=== PATIENT | female | born 1960 | race Caucasian/White ===

== ENCOUNTER 2019-09-22 09:20 | Outpatient (CLI) | payer OTHER, SELFPAY ==
--- NOTE | ~2019-09-22 | MM_ITS ---
EXAMINATION: MM screening [facility] BI w zakiya HISTORY: Screening mammogram TECHNIQUE: Craniocaudal and mediolateral oblique 3-D tomosynthesis images were obtained and synthetic 2-D images were generated. CAD analysis was submitted and interpreted. COMPARISON: 08/13/2018 BREAST PARENCHYMAL COMPOSITION: There are scattered areas of fibroglandular density. FINDINGS: RIGHT BREAST: An asymmetry is present in the posterior third of the slightly outer breast best apprec iated 7 cm from the nipple on the craniocaudal view. LEFT BREAST: There is a possible mass in the posterior third of the outer breast 10 cm from the nippl e. IMPRESSION: 1. Bilateral breast findings as described above. 2. Additional mammographic views and possible breast ultrasound are recommended. BI-RADS Category 0: Incomplete: Needs additional imaging evaluation. Reviewed, dictated and finalized at location A. UTER OPERATIONS ANALYST IMPRESSION: 1. Bilateral breast findings as described above. 2. Additional mammographic views and possible breast ultrasound are recommended . BI-RADS Category 0: Incomplete: Needs additional imaging evaluation.
== END 2019-09-22 09:21 | disposition home or self-care (01) ==
LOC: ANHIMG 09:26
PROVIDERS: PCP Family Medicine; Visit Provider Obstetrics & Gynecology
DX: Z12.31 Encounter for screening mammogram for malignant neoplasm of breast (principal)
CPT/HCPCS: 77063; 77067

== ENCOUNTER 2019-10-15 11:53 | Outpatient (CLI) | payer OTHER, SELFPAY ==
--- NOTE | ~2019-10-15 | MMUS_ITS ---
EXAMINATION: MM diagnostic mammo BI, US breast BI limited HISTORY: Follow-up breast asymmetries TECHNIQUE: Additional 3-D tomosynthesis images of the breasts were performed and synthetic 2-D images were generated. CAD analysis was submitted and interpreted. High resolution bilateral breast ultraso und was performed. COMPARISON: Comparison to multiple prior studies sequentially, with oldest reviewed study dated 07/19. FINDINGS: MAMMOGRAPHIC FINDINGS: Breast composed of scattered areas of fibroglandular density. There are no suspicious masses, calcifi cations or architectural distortion in either breast to suggest malignancy. ULTRASOUND: Right breast ultrasound: Normal heterogeneous echotexture without focal mass. Left breast ultrasound: At 2:00, 5 cm from the nipple there is a 4 mm simple cyst. No suspicious masses to suggest malignancy . IMPRESSION: 1. No mammographic or sonographic evidence for malignancy. 2. Routine yearly screening mammogram and regular clinical breast examination are recommended. BI-RADS Category 2: Benign finding(s). Reviewed, dictated and finalized at location A. SERVICE TECHNICIAN IMPRESSION: 1. No mammographic or sonographic evidence for malignancy. 2. Routine yearly screening mammogram and regular clinical breast examination a re recommended. BI-RADS Category 2: Benign finding(s).
== END 2019-10-15 11:54 | disposition home or self-care (01) ==
LOC: ANHIMG 11:55
PROVIDERS: PCP Family Medicine; Visit Provider Obstetrics & Gynecology
DX: R92.8 Other abnormal and inconclusive findings on diagnostic imaging of breast (principal)
CPT/HCPCS: 76642; 77066

== ENCOUNTER → 2020-05-05 14:19 | Outpatient (CLI) | payer OTHER, SELFPAY ==
--- NOTE | ~2020-05-05 | XR_ITS ---
EXAMINATION: XR wrist LT min 3V DATE: 05/05/2020 15:19 INDICATION: Left wrist pain. TECHNIQUE: 4 views of left wrist were obtained. COMPARISON: Left wrist radiographs 02/12/2010 FINDINGS: Bone alignment is normal. No fracture. There is heterotopic ossification around ulnar stylo id. There is mild osteoarthritis of first carpometacarpal joint. IMPRESSION: 1. Mild osteoarthritis of first carpometacarpal joint. Reviewed, dictated and finalized at location A.
== END ==
PROVIDERS: PCP Family Medicine; Visit Provider Family Medicine
DX: M19.032 Primary osteoarthritis, left wrist (principal)
CPT/HCPCS: 73110

== ENCOUNTER 2020-11-30 10:18 | Outpatient (CLI) | payer OTHER, SELFPAY ==
--- NOTE | ~2020-11-30 | DEXA_ITS ---
Bone Density Report Name: Isabella Mccartney Age: 60 Sex: Female Ethnicity: White Date of : 1960 Indication: postmenopausal; prior fracture; hysterectomy; Referring Provider: ARIK GILLETTE Study: Bone densitometry was performed. Exam Date: November 30, 2020 Accession number: [id number] Bone Density: Region BMD T-score Z-score Classification AP Spine (L1, L2) 1.046 0.6 2.0 Normal Femoral Neck (Left) 0.804 -0.4 0.9 Normal Total Hip (Left) 0.903 -0.3 0.7 Normal Total Hip Bilateral Avg 0.900 -0.4 0.7 Normal Femoral Neck (Right) 0.805 -0.4 0.9 Normal Total Hip (Right) 0.896 -0.4 0.6 Normal World Health Organization criteria for BMD impression classify patients as: Normal (T-score at or above -1.0), Osteopenia (T-score between -1.0 and -2.5), or Osteoporosis (T-score at or below -2.5). 10-year Fracture Risk: FRAX not reported because: All T-scores for Spine Total, Hip Total, Femoral Neck at or above -1.0 Previous Exams: Region Exam Age BMD T-score BMD Change BMD Change Date g/cm2 vs Baseline vs Previous AP Spine(L1, L2) 11/30/2020 60 1.046 0.6 -0.003(-0.2%) -0.003(-0.2%) 08/13/2018 57 1.048 0.6 Total Hip(Left) 11/30/2020 60 0.903 -0.3 -0.017(-1.8%) -0.017(-1.8%) 08/13/2018 57 0.920 -0.2 Total Hip(Right) 11/30/2020 60 0.896 -0.4 -0.108(-10.8%) -0.108(-10.8%) 08/13/2018 57 1.005 0.5 *Denotes significance at 95% confidence level, LSC for AP Spine = 0.022 g/cm2, LSC for Total Hip = 0.027 g/cm2 Clinical Information Provided by Patient: Has had a low trauma fracture Has used the following medications: Vitamin D, Calcium Has the following medical conditions: Hysterectomy, HYPOTHYROIDISM Patient maximum height was 62 Menopause Age: 49 Does not regularly consume dairy products Drinks caffeinated beverages Onset of menses at age 11 Number of children 2 Impression: The patient has normal bone mass. The patient has risk factors, including: previous fracture. The BMD for the Total Hip(Right) decreased, changing by -10.8% since the last DXA exam. Discussion: BONE DENSITY IS ABOVE THE MINIMUM DESIRABLE LEVEL AT ALL SKELETAL SITES TESTED. This patient?s bone mineral density is above the minimum desirable level (T-score -1.0 or better) at all sites measured. The patient should follow a healthful lifestyle (good nutrition with adequate calcium and vitamin D, and appropriate weight-bearing exercise). Follow-Up: Consider repeating thi
--- NOTE | ~2020-11-30 | MM_ITS ---
EXAMINATION: MM screening [facility] BI w zakiya HISTORY: Screening TECHNIQUE: Craniocaudal and mediolateral oblique 3-D tomosynthesis images were obtained and synthetic 2-D images were generated. CAD analysis was submitted and interpreted. COMPARISON: Comparison to multiple prior studies sequentially, with oldest reviewed study dated 07/19. BREAST PARENCHYMAL COMPOSITION: There are scattered areas of fibroglandular density. FINDINGS: There is no evidence of suspicious mass, calcification, or architectural distortion to sugg est malignancy in either breast. There has been no suspicious interval change. IMPRESSION: 1. No mammographic evidence of malignancy. 2. Recommend routine screening mammography in one year. BI-RADS Category 1: Negative Reviewed, dictated and finalized at location A.
== END 2020-11-30 10:19 | disposition home or self-care (01) ==
PROVIDERS: PCP Family Medicine; Visit Provider Obstetrics & Gynecology
DX: Z78.0 Asymptomatic menopausal state (principal); Z12.31 Encounter for screening mammogram for malignant neoplasm of breast
CPT/HCPCS: 77063; 77067; 77080

== ENCOUNTER 2022-01-18 09:54 | Outpatient (CLI) | payer OTHER, SELFPAY ==
--- NOTE | ~2022-01-18 | MM_ITS ---
EXAMINATION: MM screening [facility] BI w zakiya HISTORY: Screening mammogram TECHNIQUE: Craniocaudal and mediolateral oblique 3-D tomosynthesis images were obtained and synthetic 2-D images were generated. CAD analysis was submitted and interpreted. COMPARISON: 11/30/2020 bilateral screening mammogram 10/15/2019 bilateral diagnostic mammography and bilateral Limited breast ultrasound , 08/13/2018 bilateral screening mammogram examinations BREAST PARENCHYMAL COMPOSITION: There are scattered areas of fibroglandular density. FINDINGS: Status post bilateral reduction mammoplasty. Possible new asymmetric density in the upper o uter quadrant of each breast. Bilateral diagnostic mammography is recommended, with ultrasound if req uired. IMPRESSION: 1. Possible new asymmetric density in upper outer quadrant of each breast since November 30, 2020 2. Bilateral diagnostic mammography is recommended, with ultrasound if required BI-RADS Category 0: Incomplete: Needs additional imaging evaluation. Reviewed, dictated and finalized at location A.
== END 2022-01-18 09:55 | disposition home or self-care (01) ==
PROVIDERS: PCP Family Medicine; Visit Provider Obstetrics & Gynecology
DX: Z12.31 Encounter for screening mammogram for malignant neoplasm of breast (principal); R92.8 Other abnormal and inconclusive findings on diagnostic imaging of breast
CPT/HCPCS: 77063; 77067

== ENCOUNTER 2022-02-01 11:52 | Outpatient (CLI) | payer OTHER, SELFPAY ==
--- NOTE | ~2022-02-01 | MMUS_ITS ---
EXAMINATION: MM diagnostic [facility] BI w zakiya, US breast BI limited HISTORY: Follow-up breast asymmetries TECHNIQUE: Additional 3-D tomosynthesis images of the breasts were performed and synthetic 2-D images were generated. CAD analysis was submitted and interpreted. High resolution limited bilateral breast ultrasound was performed. COMPARISON: Comparison to multiple prior studies sequentially, with oldest reviewed study dated 07/19. BREAST PARENCHYMAL COMPOSITION: Breast composed of scattered areas of fibroglandular density FINDINGS: MAMMOGRAPHIC FINDINGS: There are no suspicious masses, calcifications or architectural distortion to suggest malignancy. ULTRASOUND: Limited bilateral breast ultrasound: Normal heterogeneous echotexture without focal solid or cystic m ass. IMPRESSION: 1. No evidence for malignancy in either breast. 2. Routine yearly screening mammogram and regular clinical breast examination are recommended. BI-RADS Category 1: Negative Reviewed, dictated and finalized at location A. IMPRESSION: 1. No evidence for malignancy in either breast. 2. Routine yearly screening mammogram and regular clinical breast examination a re recommended. BI-RADS Category 1: Negative
== END 2022-02-01 11:53 | disposition home or self-care (01) ==
LOC: ANHIMG 11:53
PROVIDERS: PCP Family Medicine; Visit Provider Obstetrics & Gynecology
DX: R92.8 Other abnormal and inconclusive findings on diagnostic imaging of breast (principal)
CPT/HCPCS: 76642; 77062; 77066; G0279

== ENCOUNTER 2022-02-20 01:56 | Day surgery (SDC) | payer OTHER, SELFPAY ==
[2022-02-04 14:10] VITALS: BMI 22.9
--- NOTE | 2022-02-19 10:15 | PM.HPGS ---
History of Present Illness History of Present Illness Consent: Risks, benefits, and alternatives have been discussed and questions answered. Patient agrees to proceed with procedure. Chief complaint: neoplasm screening Narrative: Isabella Mccartney is a 61 year old female referred for colon cancer screening. Her last colonoscopy was 10 years ago. For family history is negative for colon cancer Review of Systems Review of Systems: All systems reviewed & are unremarkable except as noted in HPI and below PMFSH Past Medical History Medical History Lumbar spinal stenosis Thyroid disease Surgical History Surgical History H/O ovarian cystectomy H/O spinal fusion History of vaginal hysterectomy S/P bilateral breast reduction S/P foot surgery S/P lumbar laminectomy Family History Family History Father Hypertension, Onset Age: 50 Family history of coronary artery disease Family history of malignant neoplasm of kidney Diabetes mellitus Patient's father is in good health Family history of elevated blood lipids Grandparent Diabetes mellitus Cerebrovascular accident, Onset Age: 80 Other Family history of arthritis Social History Social History Smoking status: Never smoker Second hand tobacco smoke exposure: No Alcohol intake: current Drinks per week: 6 Substance use: never Substance use type: does not use Living arrangements: with family Gender identity (if verbalized by the patient): Female Spiritual care concerns: No Meds Home Medications and Allergies Home Medications Medication Instructions Recorded Confirmed Type cholecalciferol (vitamin D3) 125 5,000 unit PO DAILY 07/08/19 02/20/22 History mcg (5,000 unit) capsule fexofenadine 60 mg tablet (Sarah 60 mg PO Q12H 07/08/19 02/20/22 History Allergy) latanoprost 0.005 % eye drops 1 drop ophthalmic (eye) QPM 08/30/19 02/20/22 History trazodone 50 mg tablet 100 mg PO DAILY 10/11/20 02/20/22 History cyclobenzaprine 10 mg tablet 10 mg PO .prn PRN muscle relaxer 12/19/21 02/20/22 History hydroxyzine HCl 25 mg tablet See Rx Instructions .Route 05/04/22 07/06/22 History .COMPLEX PRN muscle relaxer celecoxib 200 mg capsule (Celebrex) 200 mg PO BID 12/26/21 02/20/22 History levothyroxine 100 mcg tablet 100 mcg PO DAILY 12/26/21 02/20/22 History liothyronine 5 mcg tablet (Cytomel) 5 mcg PO DAILY 12/26/21 02/20/22 History spironolactone 25 mg tablet 75 mg PO DAILY 12/26/21 02/20/22 History (Aldactone) sodium sul 1.479 gram-potas ch See Rx Instructions PO PER PKG DIR 01/01/22 02/20/22 Rx 0.188 gram-magnes sul 0.225 gram #24 tabs tablet (Sutab) triamcinolone acetonide 55 mcg 1 spray intranasal DAILY 02/04/22 02/20/22 History nasal spray aerosol Allergies Allergy/AdvReac Type Severity Reaction Status Date / Time No Known Allergies Allergy Verified 02/20/22 06:28 Exam Resp: Auscultation: clear to auscultation bilaterally Cardio: Rate: regular rate Rhythm: regular rhythm GI: GI Palp: Yes Soft to palpation and No Tenderness to palpation present (GI) Assessment and Plan Assessment and plan (1) Colon cancer screening: Code(s): Z12.11 - Encounter for screening for malignant neoplasm of colon Status: Acute Assessment and Plan: Colonoscopy with possible biopsy or polypectomy or cautery or injection of substances.
[2022-02-20 06:30] VITALS: BP 145/85; PULSE 87; RESP 19; TEMP 36.2; O2SAT 100; BMI 22.2
[2022-02-20] MEDS: LACTATED RINGERS 1,000 ML 150 ML IV CONT (06:39)
--- NOTE | 2022-02-20 06:50 | WPDANESEPPF ---
Anes - Initial Pre Proc Eval Procedure: Operation Date: 02/20/22 07:30 Proposed Procedures p Screening Colonoscopy - Jonny Poe MD Date/Time: 02/20/22 06:50 Surgeon: Jonny Poe MD Pre Op Diagnosis: neoplasm screening Patient Data Age: 61 Gender: F Height: 1.57 m Weight: 55.1 kg Last Vital Signs Temp 36.2 C L 02/20/22 06:30 Pulse 87 02/20/22 06:30 Resp 19 02/20/22 06:30 BP 145/85 H 02/20/22 06:30 Pulse Ox 100 02/20/22 06:30 O2 Del Method Room Air 02/20/22 06:30 Allergies Allergy/AdvReac Type Severity Reaction Status Date / Time No Known Allergies Allergy Verified 02/20/22 06:28 Home Medications Medication Instructions Recorded Confirmed Type cholecalciferol (vitamin D3) 125 5,000 unit PO DAILY 07/08/19 02/20/22 History mcg (5,000 unit) capsule fexofenadine 60 mg tablet (Sarah 60 mg PO Q12H 07/08/19 02/20/22 History Allergy) latanoprost 0.005 % eye drops 1 drop ophthalmic (eye) QPM 08/30/19 02/20/22 History trazodone 50 mg tablet 100 mg PO DAILY 10/11/20 02/20/22 History cyclobenzaprine 10 mg tablet 10 mg PO .prn PRN muscle relaxer 12/19/21 02/20/22 History hydroxyzine HCl 25 mg tablet See Rx Instructions .Route 12/19/21 02/20/22 History .COMPLEX PRN muscle relaxer celecoxib 200 mg capsule (Celebrex) 200 mg PO BID 12/26/21 02/20/22 History levothyroxine 100 mcg tablet 100 mcg PO DAILY 12/26/21 02/20/22 History liothyronine 5 mcg tablet (Cytomel) 5 mcg PO DAILY 12/26/21 02/20/22 History spironolactone 25 mg tablet 75 mg PO DAILY 12/26/21 02/20/22 History (Aldactone) sodium sul 1.479 gram-potas ch See Rx Instructions PO PER PKG DIR 01/01/22 02/20/22 Rx 0.188 gram-magnes sul 0.225 gram #24 tabs tablet (Sutab) triamcinolone acetonide 55 mcg 1 spray intranasal DAILY 02/04/22 02/20/22 History nasal spray aerosol Patient hx anesthesia problems: none Family hx anesthesia problems: none Results Review: All pre-operative results and documents have been reviewed as part of the pre-operative evaluation. [facility] Past Medical History Medical History Lumbar spinal stenosis Thyroid disease Surgical History Surgical History H/O ovarian cystectomy H/O spinal fusion History of vaginal hysterectomy S/P bilateral breast reduction S/P foot surgery S/P lumbar laminectomy Family History Family History Father Hypertension, Onset Age: 50 Family history of coronary artery disease Family history of malignant neoplasm of kidney Diabetes mellitus Patient's father is in good health Family history of elevated blood lipids Grandparent Diabetes mellitus Cerebrovascular accident, Onset Age: 80 Other Family history of arthritis Social History Social History Smoking status: Never smoker Second hand tobacco smoke exposure: No Alcohol intake: current Drinks per week: 6 Substance use: never Substance use type: does not use Living arrangements: with family Gender identity (if verbalized by the patient): Female Spiritual care concerns: No Anes - Eval Final PreProcedure Day of Procedure 02/20/22 06:50 Patient weight: normal Heart: regular rate and rhythm Lungs: clear to auscultation Airway: Mallampati scale class II Neurological: alert and oriented Last oral intake: >/= 8 hours ASA classification: II Emergent: no Anesthetic plan: proceed Anesthesia type and monitoring: general GIVS and standard monitoring Results Review: All pre-operative results and documents have been reviewed as part of the pre-operative evaluation. Informed Consent: The patient's anesthetic plan and its attendant risks and benefits were discussed with the patient/family/POA. Questions were solicited and answers
[2022-02-20 07:43] VITALS: BP 98/58; PULSE 74; RESP 18; O2SAT 100
[2022-02-20 07:53] VITALS: BP 121/69; PULSE 72; RESP 16; O2SAT 100
[2022-02-20 08:03] VITALS: BP 119/76; PULSE 74; RESP 18; O2SAT 100
== END 2022-02-20 08:14 | disposition home or self-care (01) ==
PROVIDERS: PCP Family Medicine; Visit Provider Internal Medicine Gastroenterology
PROC: 0DJD8ZZ Inspection of Lower Intestinal Tract, Via Natural or Artificial Opening Endoscopic (ICD-10-PCS; CPT 45378; principal; 2022-02-20 07:30)
DX: Z12.11 Encounter for screening for malignant neoplasm of colon (principal); D12.4 Benign neoplasm of descending colon; K62.1 Rectal polyp; K57.30 Diverticulosis of large intestine without perforation or abscess without bleeding; E03.9 Hypothyroidism, unspecified; M48.061 Spinal stenosis, lumbar region without neurogenic claudication; Z98.1 Arthrodesis status
CPT/HCPCS: 45380; 88305; J2704; J7120

== ENCOUNTER 2023-06-13 09:06 | Outpatient (CLI) | payer OTHER, SELFPAY ==
--- NOTE | ~2023-06-13 | MM_ITS ---
EXAMINATION: MM screening [facility] BI w zakiya HISTORY: Screening mammogram TECHNIQUE: Craniocaudal and mediolateral oblique 3-D tomosynthesis images were obtained and synthetic 2-D images were generated. CAD analysis was submitted and interpreted. COMPARISON: 02/01/2022 bilateral diagnostic mammogram and bilateral Limited breast ultrasound examinat ion, reported negative 01/18/2022, 11/30/2020 bilateral screening mammogram BREAST PARENCHYMAL COMPOSITION: There are scattered areas of fibroglandular density. FINDINGS: History of bilateral breast reduction mammoplasty. There is no evidence of suspicious mass, calcification, or architectural distortion to suggest malignancy in either breast. There has been no suspicious interval change. IMPRESSION: 1. No mammographic evidence of malignancy. 2. Recommend routine screening mammography in one year. BI-RADS Category 1: Negative Reviewed, dictated and finalized at location A.
== END 2023-06-13 09:07 | disposition home or self-care (01) ==
LOC: ANHIMG 09:08
PROVIDERS: PCP Family Medicine; Visit Provider Registered Nurse
DX: Z12.31 Encounter for screening mammogram for malignant neoplasm of breast (principal)
CPT/HCPCS: 77063; 77067

== ENCOUNTER 2023-10-07 09:08 | Emergency (ER) | payer OTHER, SELFPAY ==
--- NOTE | ~2023-10-07 | XR_ITS ---
EXAMINATION: XR chest 2V DATE: 10/07/2023 09:50 INDICATION: Cough TECHNIQUE: PA and lateral views of the chest are obtained. COMPARISON: None available FINDINGS: The lungs are free of acute opacities. No pleural effusion or pneumothorax. The cardiomedia stinal silhouette is normal. There is moderate thoracic spondylosis. IMPRESSION: 1. No acute cardiopulmonary abnormality. Reviewed, dictated and finalized at location L. AGER AND STRAPPER
--- NOTE | 2023-10-07 09:18 | ED.URI ---
HPI - URI/Sore Throat General Chief Complaint: Upper Respiratory Infection Stated Complaint: COUGH/EARS CLOGGED Time Seen by Provider: 10/07/23 09:36 Source: patient and RN notes reviewed Mode of arrival: ambulatory Limitations: no limitations History of Present Illness HPI Narrative: 62-year-old female presents with concern for cough for 5 weeks, clogged ears any ear pain for the last several days. Reports she flu recently and the flight cause ear pressure and pain, the flight home made it worse. She denies drainage from either ear. She reports she has taken multiple [id number] medications without relief of her cough for her ear pain. She denies fever, body aches, chills, sweats MD elicited complaint: cough and other (ear pain) Related Data Home Medications Medication Instructions Recorded Confirmed cholecalciferol (vitamin D3) 125 5,000 unit PO DAILY 07/08/19 10/07/23 mcg (5,000 unit) capsule fexofenadine 60 mg tablet (Sarah 60 mg PO Q12H 07/08/19 10/07/23 Allergy) trazodone 50 mg tablet 100 mg PO DAILY 10/11/20 10/07/23 celecoxib 200 mg capsule (Celebrex) 200 mg PO BID 12/26/21 10/07/23 levothyroxine 100 mcg tablet 100 mcg PO DAILY 12/26/21 10/07/23 liothyronine 5 mcg tablet (Cytomel) 5 mcg PO DAILY 12/26/21 10/07/23 spironolactone 25 mg tablet 75 mg PO DAILY 12/26/21 10/07/23 (Aldactone) benzonatate 200 mg capsule 200 mg PO DIRECTED 10/07/23 10/07/23 Allergies Allergy/AdvReac Type Severity Reaction Status Date / Time No Known Allergies Allergy Verified 10/07/23 10:09 Review of Systems Review of Systems: CONSTITUTIONAL: Denies malaise, chills, sweats, or fever. EYES: Denies visual changes, redness, or discharge. Reports redness in the right eye ENT: Denies rhinorrhea, congestion, sinus pain, and sore throat. Reports ear pain CARDIOVASCULAR: Denies chest pain, palpitations, or edema. RESPIRATORY: Reports dry persistent cough. Denies dyspnea. GASTROINTESTINAL: Denies abdominal pain, nausea, vomiting, diarrhea SKIN: Denies rash or itching. MUSCULOSKELETAL: Denies myalgia. NEUROLOGIC: Denies headache. All systems reviewed & are unremarkable except as noted in HPI and below PMFSH Past Medical History Medical History (Updated 10/07/23 @ 10:17 by Diana Pérez NP) Encounter for screening mammogram for malignant neoplasm of breast Lumbar spinal stenosis Thyroid disease Surgical History Surgical History H/O ovarian cystectomy H/O spinal fusion History of vaginal hysterectomy S/P bilateral breast reduction S/P foot surgery S/P lumbar laminectomy Family History Family History Father Hypertension, Onset Age: 50 Family history of coronary artery disease Family history of malignant neoplasm of kidney Diabetes mellitus Patient's father is in good health Family history of elevated blood lipids Grandparent Diabetes mellitus Cerebrovascular accident, Onset Age: 80 Other Family history of arthritis Social History Social History (Updated 03/11/23 @ 09:32 by Marlene Feng) Smoking status: Never smoker Second hand tobacco smoke exposure: No Alcohol intake: current Drinks per week: 6 Substance use: never Substance use type: does not use Lack of Transportation: No Lack of Food: Never True Current Housing: I Have Housing Concerned About Future Housing: No Difficulty Paying Gas/Electric Bills: No Difficulty Paying for Meds: No Currently Unemployed: No Education: Bachelor's Degree Difficulty w/ Childcare or Family Care: No Living arrangements: with family Occupation/Education: occupation Gender identity (if verbalized by the patient): Female Spiritual care concerns: No Comments At time of signature, agree with nursing past medical, surgical, social and family history. There is no relevant family history pertinent to the
[2023-10-07 09:19] VITALS: BP 125/85; PULSE 91; RESP 16; TEMP 36.8; O2SAT 100
== END 2023-10-07 10:20 | disposition home or self-care (01) ==
PROVIDERS: Emergency Provider Nurse Practitioner; PCP Family Medicine
DX: J40 Bronchitis, not specified as acute or chronic (principal); H73.892 Other specified disorders of tympanic membrane, left ear; M48.061 Spinal stenosis, lumbar region without neurogenic claudication; E07.9 Disorder of thyroid, unspecified
CPT/HCPCS: 71046; 99213; G0463

== ENCOUNTER 2023-12-03 15:23 | Outpatient (CLI) | payer OTHER, SELFPAY ==
--- NOTE | ~2023-12-03 | DEXA_ITS ---
Bone Density Report Name: ALEXIA PRESTON Age: 63 Sex: Female Ethnicity: White Date of : 1960 Indication: postmenopausal; screening for osteoporosis; height loss; hysterectomy; Referring Provider: LORNE, TARYN Velazquez Study: Bone densitometry was performed. Exam Date: December 03, 2023 Accession number: [id number] Bone Density: Region BMD T-score Z-score Classification AP Spine(L1, L2, L3) 1.208 1.7 3.4 Normal Femoral Neck (Left) 0.803 -0.4 1.0 Normal Total Hip (Left) 0.908 -0.3 0.9 Normal Femoral Neck (Right) 0.778 -0.6 0.8 Normal Total Hip (Right) 0.915 -0.2 0.9 Normal Total Hip Mean 0.911 -0.3 0.9 Normal World Health Organization criteria for BMD impression classify patients as: Normal (T-score at or above -1.0), Osteopenia (T-score between -1.0 and -2.5), or Osteoporosis (T-score at or below -2.5). 10-year Fracture Risk: FRAX not reported because: All T-scores for Spine Total, Hip Total, Femoral Neck at or above -1.0 Previous Exams: Region Exam Age BMD T-score BMD Change BMD Change Date g/cm2 vs Baseline vs Previous Total Hip(Left) 12/03/2023 63 0.908 -0.3 -0.012 (-1.3%) 0.005 (0.5%)# 11/30/2020 60 0.903 -0.3 -0.017 (-1.8%) -0.017 (-1.8%) 08/13/2018 57 0.920 -0.2 Total Hip(Right) 12/03/2023 63 0.915 -0.2 -0.089 (-8.9%) 0.019 (2.1%)# 11/30/2020 60 0.896 -0.4 -0.108 (-10.8% -0.108 (-10.8% 08/13/2018 57 1.005 0.5 *Denotes significance at 95% confidence level, LSC for Total Hip = 0.027 g/cm2 # Denotes dissimilar scan types or analysis methods Clinical Information Provided by Patient: Has used the following medications: HRT (i.e. estrogen/hormone therapy), Vitamin D Has the following medical conditions: Hysterectomy Patient maximum height was 62 Menopause Age: 49 Drinks caffeinated beverages Onset of menses at age 11 Number of children 2 Impression: The patient has normal bone mass. No significant bone loss was observed. Discussion: BONE DENSITY IS ABOVE THE MINIMUM DESIRABLE LEVEL AT ALL SKELETAL SITES TESTED. This patient?s bone mineral density is above the minimum desirable level (T-score -1.0 or better) at all sites measured. The patient should follow a healthful lifestyle (good nutrition with adequate calcium and vitamin D, and appropriate weight-bearing exercise). Follow-Up: Consider repeating this study in 5 years or sooner if there is some new clinical indication. Reported by: LOUANN on 12/03/2023 3:49:00 PM. ____
== END 2023-12-03 15:24 | disposition home or self-care (01) ==
LOC: ANHIMG 15:24
PROVIDERS: PCP Family Medicine; Visit Provider Registered Nurse
DX: Z78.0 Asymptomatic menopausal state (principal)
CPT/HCPCS: 77080

== ENCOUNTER 2024-07-28 09:02 | Emergency (ER) | payer OTHER, SELFPAY ==
--- NOTE | ~2024-07-28 | XR_ITS ---
XR ankle LT min 3V Ordering provider: Uziel Valente APRN History: . achilles injury- pain- possible tear/rupture . Comparison: None. FINDINGS: BONES: No acute fracture or dislocation. JOINT SPACES: The ankle mortise is normal. SOFT TISSUES: Normal. IMPRESSION: No acute osseous abnormality left ankle. Reviewed, dictated and finalized at location A. NE MANAGER
--- NOTE | 2024-07-28 09:03 | ED.LOWEXIN ---
HPI - Extremity Injury (Lower) General Chief Complaint: Extremity Injury, Lower Stated Complaint: Injured Ankle Time Seen by Provider: 07/28/24 09:03 Source: patient Mode of arrival: ambulatory Limitations: no limitations History of Present Illness HPI Narrative: Isabella is a 63-year-old female patient presenting to the clinic today with complaints of ankle injury that occurred around 730 this morning. She reports she was skipping rope when the injury occurred. She reports she was skipping and felt like somebody hit her in the back of the Achilles with a kettle ball. Is now having pain with dorsal flexion and plantar flexion of the foot to the back of her calf. Has pain and swelling to the posterior ankle and distal posterior tib-fib. Pain with ambulation. Took 375 mg of naproxen prior to arrival. Reports pain throbbing when sitting and sharp and stabbing when moving her ankle. Rates pain 4/10 currently Related Data Home Medications ?Medication ?Instructions ?Recorded ?Confirmed ?Last Taken ?Type cholecalciferol (vitamin D3) 125 5,000 unit PO DAILY 07/08/19 02/24/24 02/19/22 History mcg (5,000 unit) capsule fexofenadine 60 mg tablet (Sarah 60 mg PO Q12H 07/08/19 02/24/24 02/19/22 History Allergy) trazodone 50 mg tablet 100 mg PO DAILY 10/11/20 02/24/24 02/18/22 History celecoxib 200 mg capsule (Celebrex) 200 mg PO BID 12/26/21 02/24/24 02/19/22 History levothyroxine 100 mcg tablet 100 mcg PO DAILY 12/26/21 02/24/24 02/19/22 History liothyronine 5 mcg tablet (Cytomel) 5 mcg PO DAILY 12/26/21 02/24/24 02/19/22 History spironolactone 50 mg tablet 150 mg PO DAILY 02/24/24 02/24/24 Unknown History Allergies Allergy/AdvReac Type Severity Reaction Status Date / Time No Known Allergies Allergy Verified 03/17/24 09:02 Review of Systems Review of Systems: Pertinent positives per HPI. Patient denies any fever, chills, rash, headache, visual changes, dizziness, cough, runny nose, sore throat, shortness of breath, chest pain, palpitations, nausea, vomiting, diarrhea, constipation, abdominal pain, or any urinary issues. [facility] Past Medical History Medical History Encounter for screening mammogram for malignant neoplasm of breast Lumbar spinal stenosis Thyroid disease Surgical History Surgical History H/O rectocele repair S/P foot surgery H/O spinal fusion S/P lumbar laminectomy H/O ovarian cystectomy S/P bilateral breast reduction History of vaginal hysterectomy Family History Family History Father Hypertension, Onset Age: 50 Family history of coronary artery disease Family history of malignant neoplasm of kidney Diabetes mellitus Patient's father is in good health Family history of elevated blood lipids Grandparent Diabetes mellitus Cerebrovascular accident, Onset Age: 80 Other Family history of arthritis Social History Social History Smoking status: Never smoker Second hand tobacco smoke exposure: No Alcohol intake: current Drinks per week: 6 Substance use: never Substance use type: does not use Lack of Transportation: No Lack of Food: Never True Current Housing: I Have Housing Concerned About Future Housing: No Difficulty Paying Gas/Electric Bills: No Difficulty Paying for Meds: No Currently Unemployed: No Education: Bachelor's Degree Difficulty w/ Childcare or Family Care: No Living arrangements: with family Occupation/Education: occupation Gender identity (if verbalized by the patient): Female Spiritual care concerns: No Comments At the time of my signature, I reviewed and agree with the nursing past medical, surgical, social, and family history. There is no relevant family history pertinent to the patient complaint. Exam Narrative: General: Well-developed, well nourished, in no apparent distress Head: Normocephalic, atraumatic. Cardio: Regular rate and rhythm, s1 and s2 normal, no murmur appreciated. Resp: Clear to auscultation bilaterally, no rhonchi, rales, wheezing or rubs. Musculoskeletal: No deformity, swelling noted to the posterior distal tib-fib/ankle, tender to palpation over the Achilles tendon with bulging of the Achilles tendon near the posterior distal tib/fib, is able to dorsiflex and plantar flex against resistance but this is very painful in her calf, grossly normal range of motion, muscle strength strong and equal, peripheral pulse strong, no cyanosis, sitting in a wheelchair. Course Course Emergency Course: Portions of this record may have been created with voice recognition software. Level of Care: Express Care Visit Vital Signs Vital signs: Vital Signs Oxygen Delivery Room Air 07/28/24 09:10 Temperature 36.6 C 07/28/24 09:14 Pulse Rate 104 H 07/28/24 09:14 Respiratory Rate 16 07/28/24 09:14 Blood Pressure 152/74 H 07/28/24 09:14 Pulse Oximetry 100 07/28/24 09:14 Oxygen Delivery Room Air 07/28/24 09:10 Vital signs reviewed MDM - Extremity Injury (Lower) MDM Narrative Medical decision making narrative: At the time of visit patient is resting comfortably on the exam table. Patient appears to be nontoxic. Diagnostics: Left ankle x-rays negative for any sign of fracture or malalignment. Plan: I suspect patient has an left Achilles injury/possible rupture. Will place in short leg splint and give crutches. RICE treatment. Follow up with Dr. Kathleen-Ortho. Supportive measures were discussed with the patient and they voiced understanding discharge instructions and agrees to treatment plan. Return precautions reviewed Differential Diagnosis Differential diagnosis: Likely ankle sprain and strain, ankle fracture and other (Achilles injury/rupture, soft tissue swelling.) Imaging Data Radiologist's impression: ITS Impressions Ankle X-Ray 07/28/24 09:38 IMPRESSION: No acute osseous abnormality left ankle. Discharge Plan Discharge Clinical Impression: Injury of left Achilles tendon Qualifiers: Encounter type: initial encounter Qualified Code(s): S86.002A - Unspecified injury of left Achilles tendon, initial encounter Patient Disposition: Home, Self-Care Condition: Stable Instructions: Antibiotic Form, Achilles Tendon Rupture (ED) Additional Instructions: Ankle x-rays negative for any sign of fracture or malalignment. I suspect you Achilles tendon rupture- Will likely need ultrasound for further evaluation Rest, ice, elevate, and wear short-leg splint as directed Tylenol/motrin for pain as discussed. Use crutches-nonweightbearing on the left foot until cleared by orthopedic provider Follow up with Dr. Kathleen- call his office to schedule an appointment. Follow up with your PCP if symptoms persist more than 1 week. Patient Language: Ukrainian Prescriptions: No Action fexofenadine [Sarah Allergy] 60 mg tablet 60 mg PO Q12H cholecalciferol (vitamin D3) 5,000 unit capsule 5,000 unit PO DAILY trazodone 50 mg tablet 100 mg PO DAILY levothyroxine 100 mcg tablet 100 mcg PO DAILY liothyronine [Cytomel] 5 mcg tablet 5 mcg PO DAILY celecoxib [Celebrex] 200 mg capsule 200 mg PO BID spironolactone 50 mg tablet 150 mg PO DAILY hydroxyzine HCl 25 mg tablet 25 mg PO QID PRN (Reason: anxiety) Qty: 60 1RF cyclobenzaprine 10 mg tablet See Rx Instructions .ROUTE .COMPLEX Qty: 90 1RF Dose Instruction: TAKE 1 TABLET BY MOUTH THREE TIMES DAILY Rx Instructions: TAKE 1 TABLET BY MOUTH THREE TIMES DAILY Follow-up/Referrals: Lauri Ellis MD [Primary Care Provider] - Time of Disposition: 09:52 Quality NIHSS Nursing Documentation ED NIHSS nursing documentation: reviewed/agree
[2024-07-28 09:14] VITALS: BP 152/74; PULSE 104; RESP 16; TEMP 36.6; O2SAT 100
--- NOTE | 2024-07-28 10:00 | PC.NURSE ---
+PMS POST OCL APPLICATION
== END 2024-07-28 10:01 | disposition home or self-care (01) ==
PROVIDERS: Emergency Provider Nurse Practitioner Family; PCP Family Medicine
DX: S86.002A Unspecified injury of left Achilles tendon, initial encounter (principal); X58.XXXA Exposure to other specified factors, initial encounter; Y93.56 Activity, jumping rope; M48.061 Spinal stenosis, lumbar region without neurogenic claudication
CPT/HCPCS: 29515; 73610; 99213; G0463

== ENCOUNTER 2024-08-20 07:58 | Outpatient (CLI) | payer OTHER, SELFPAY ==
--- NOTE | ~2024-08-20 | MM_ITS ---
EXAMINATION: MM screening [facility] BI w zakiya HISTORY: Screening mammogram TECHNIQUE: Craniocaudal and mediolateral oblique 3-D tomosynthesis images were obtained and synthetic 2-D images were generated. CAD analysis was submitted and interpreted. COMPARISON: 06/13/2023, 02/01/2022, 01/18/2022, 11/30/2020 BREAST PARENCHYMAL COMPOSITION:Not Dense. There are scattered areas of fibroglandular density. FINDINGS: No suspicious mass, calcification, or architectural distortion are identified in either carla ast to suggest malignancy. There has been no suspicious interval change. IMPRESSION: No mammographic evidence of malignancy. Recommend routine screening mammography in one year. BI-RADS Category 1: Negative Reviewed, dictated and finalized at location . BACK
== END 2024-08-20 07:59 | disposition home or self-care (01) ==
LOC: ANHIMG 08:00
PROVIDERS: PCP Family Medicine; Visit Provider Nurse Practitioner Obstetrics & Gynecology
DX: Z12.31 Encounter for screening mammogram for malignant neoplasm of breast (principal)
CPT/HCPCS: 77063; 77067